=== PATIENT | male | born 1965 | race Caucasian/White ===

== ENCOUNTER 2023-10-20 01:15 | Emergency (ER) | payer OTHER, SELFPAY ==
[2023-10-20 01:20] VITALS: BP 126/84; PULSE 78; RESP 16; TEMP 36.9; O2SAT 98; BMI 28.6
--- NOTE | 2023-10-20 02:04 | PC.NURSE ---
pt noted to have small dime size mole, small amount of blood noted on dressing placed by tearoom hostess, bleeding controlled.
--- NOTE | 2023-10-20 03:51 | PC.NURSE ---
pt in room for 2.5 hours, pt not seen by physician in this time frame. pt reports he would like to leave without being seen, pt ambulated out of [facility] room with steady gait, pt friend at bedside to assist with pt transport home.
== END 2023-10-20 03:58 | disposition left against medical advice (07) ==
PROVIDERS: Emergency Provider Emergency Medicine
DX: D22.9 Melanocytic nevi, unspecified (principal); R58 Hemorrhage, not elsewhere classified
CPT/HCPCS: 99282; 99284